=== PATIENT | male | born 1945 | race Caucasian/White ===

== ENCOUNTER 2019-10-08 16:43 | Inpatient (IN) | payer MEDICARE, BC ==
[2019-10-08 22:37] VITALS: BP 135/77
[2019-10-09] MEDS: INSULIN LISPRO SLIDING SCALE 100 UNITS/ML UNIT SUBQ SCH ×4 (06:33→21:11)
[2019-10-09] MEDS ORDERED: DOCUSATE SODIUM PO SCH (09:00)
--- NOTE | 2019-10-09 12:08 | Psychiatric Evaluation ---
DATE OF SERVICE: 10/09/2019 HISTORY OF PRESENT ILLNESS: A 74-year-old male coming in from [facility] ER direct admission, depression, thoughts of suicide via overdose. The patient alludes to depression and anxiety. He states he wants to leave, but he is on a 5150 hold. AO to name, place, not situation, he knows the year and the month. The patient attests to some anxiety. He states his had a stroke and is in the hospital, restless on exam, feeling really upset about being in the hospital, expressing his anger toward being in the hospital, wants to leave and not the best historian, minimizing his symptoms. PAST PSYCHIATRIC HISTORY: Denies any suicide attempts, denies any mental illness. FAMILY HISTORY: Noncontributory. SOCIAL HISTORY: Stating he was born in [place]. He states he is , states his is in the hospital, states he has 3 children. Family involved. The patient knows his address, states he lives at home with . MEDICATIONS: Noted. MEDICAL HISTORY: Noted including hypertension. MENTAL STATUS EXAMINATION: Stated age. Fair eye contact. Speech within normal limits. Mood "not good." Affect angry. Thought processes are linear. The patient presented due to SI, no HI, no overt psychotic symptoms. Insight seems diminished. PROVISIONAL DIAGNOSES: Major depression, recurrent, unspecified; anxiety, unspecified. MEDICAL: Please see full H and P. ESTIMATED LENGTH OF STAY: 7-10 days. ASSESSMENT: The patient requiring hospitalization on hold, suicidal. TREATMENT PLAN: Includes group as well as milieu therapy. CONDITIONS FOR DISCHARGE: Improved mood, improved affect, better control of his mood symptoms, depression, cessation of any SI. [facility]# [id number]
[2019-10-09] MEDS ORDERED: TEMAZEPAM 15 MG PO SCH (21:00)
[2019-10-10] MEDS: INSULIN LISPRO SLIDING SCALE 100 UNITS/ML UNIT SUBQ SCH ×4 (07:02→21:08)
--- NOTE | 2019-10-10 16:09 | Progress Notes ---
DATE: 10/10/2019 SUBJECTIVE: The patient seen, chart reviewed, discussed with staff. The patient is currently in the hospital, apparently was suicidal, placed on a hold for concerns for safety. He is not the best historian, but per nursing staff who was in touch with family, his living situation may not be the most stable that could have been the reason he decompensated. The patient seems to be down, depressed, still somewhat disoriented as to why he is in the hospital. Fair sleep and appetite, still remains somewhat unstable, depressed, down and ongoing melancholy. Unclear if he has any cognitive impairments given how withdrawn he is. Poor historian, some disorientation. Time was spent in attempting to speak with the patient, discussion with nursing staff, increase some collateral information, review of his chart, medications, legal status. We will continue to monitor. The patient still remains down, depressed, ongoing safety concerns. JOB# [id number]
--- NOTE | 2019-10-11 01:51 | History & Physical ---
ADMIT DATE: 10/10/2019 REASON FOR ADMISSION: Psychiatric disorder. HISTORY OF PRESENT ILLNESS: This is a 74-year-old male with diabetes, hypertension, BPH, neuropathy, mental disorder, admitted for psychiatric illnesses by Dr. Arora. Dr. Arora requested H and P on this patient. The patient stated that he is doing fine. Denies any medical concerns. PAST MEDICAL HISTORY: As described. FAMILY HISTORY: Denies any family history. SOCIAL HISTORY: Lives at home. No reported alcohol, tobacco or drug use. CURRENT MEDICATIONS: Per medication reconciliation list. ALLERGIES: CODEINE. REVIEW OF SYSTEMS: No fever, no chills, no cough or congestion, no chest pain, no dizziness, palpitations, diaphoresis ____. PHYSICAL EXAMINATION: VITAL SIGNS: Temperature 97.8, pulse 71, respirations 20, blood pressure 125/57, 97% saturation on room air. HEENT: Unremarkable. HEART: S1, S2 normal. LUNGS: Clear to auscultation. ABDOMEN: Soft, nontender. NEUROLOGIC: The patient awake. Moves all extremities. ____. ASSESSMENT: 1. Diabetes. 2. Hypertension. 3. Hyperlipidemia. 4. Benign prostatic hyperplasia. 5. Mental disorder. PLAN: The patient will continue current treatment plan. Medication list reviewed. ____. Psychiatrically medically stable. Thank you, Dr. Arora, for allowing me to participate in the care of this patient. JOB# [id number]
[2019-10-11] MEDS: INSULIN LISPRO SLIDING SCALE 100 UNITS/ML UNIT SUBQ SCH ×4 (07:18→21:22)
--- NOTE | 2019-10-12 03:12 | Progress Notes ---
DATE: 10/11/2019 SUBJECTIVE: The patient fairly well oriented. Slept about 6-7 hours, mostly withdrawn, keeps to self, really depressed, down, ongoing concerns really about safety. He was brought in because he was suicidal. The patient is currently in the hospital voluntarily. Unclear where he is going to go when he leaves here. Nursing staff has been in touch with director social welfare. The patient is calm right now. Still depressed, apathetic appearing, somewhat vegetative, mostly just keeps to self in his room, minimally interactive. Currently on dosing of mirtazapine, Cymbalta. Attempting to speak with the patient is pretty lethargic, down, apparently tried to commit suicide by overdosing with medications, has attempted to cut himself in the past. We will monitor closely, adjust medications. JOB# [id number]
[2019-10-12] MEDS: INSULIN LISPRO SLIDING SCALE 100 UNITS/ML UNIT SUBQ SCH ×4 (06:31→21:37)
--- NOTE | 2019-10-12 23:26 | Progress Notes ---
DATE: 10/12/2019 SUBJECTIVE: The patient was interviewed. Case was discussed with staff. Chart and records were reviewed. Per the staff, the patient has been isolated, guarded and withdrawn, admitted due to depression with suicidal thoughts and wanting to overdose on medication. The patient is very guarded during the interview. He reports that he wants to go home, but he is not willing to discuss his depression or suicidal thoughts. The patient overall appears to be depressed, isolating to his room and not discussing or communicating or interacting with other people. MENTAL STATUS EXAMINATION: The patient is lying in his hospital bed. He appears to be depressed with constricted affect. Speech is soft. Thought process is concrete. Unable to assess for suicidal or homicidal thoughts due to his poor cooperation and guarded nature. Denies any hallucinations or paranoia. Alert and oriented to person and place. Insight, judgment and impulse control appear to be poor. ASSESSMENT AND PLAN: We will continue the patient's acute hospitalization. We will continue medications as prescribed. We will encourage the patient to verbalize his needs and participate in group and milieu therapy. JOB# [id number]
[2019-10-13] MEDS: INSULIN LISPRO SLIDING SCALE 100 UNITS/ML UNIT SUBQ SCH ×4 (06:47→20:55)
--- NOTE | 2019-10-13 12:39 | Progress Notes ---
DATE: 10/13/2019 SUBJECTIVE: The patient in the hospital, irritable, upset, mostly withdrawn, keeps to self, seems to be better oriented, more engaged, knows where he is, why he is here, knows the year, but mostly guarded, isolative, withdrawn, coming in because he was suicidal, but stating he has never been suicidal, not really the best historian, just very guarded, mostly focused on leaving, able to verbalize his needs. Time was spent speaking with the patient. Fair sleep and appetite as well. Staff noting he has been pretty responsive, engaged, amenable to treatment. History of hypertension, anxiety, diabetes as well, brought in by daughter. Per social media senior associate, the patient will be going home. Daughter able to care for him. PLAN: We will continue inpatient monitoring. Continue dosing of Cymbalta. JOB# [id number]
[2019-10-14] MEDS: INSULIN LISPRO SLIDING SCALE 100 UNITS/ML UNIT SUBQ SCH (06:42)
--- NOTE | 2019-10-14 13:41 | Progress Notes ---
DATE: 10/14/2019 SUBJECTIVE: The patient in the hospital, mostly depressed, withdrawn, fair orientation, irritable, upset, still depressed down, but certainly improvement noted. No overt SI, more expressive, interactive with me. The patient will eventually return home once he is stabilized. Currently on dosing of Cymbalta, seems to be tolerating well. Also dosing of mirtazapine. Fair sleep and appetite. Staff noting some mild improvement. We will err on the side of caution, continue inpatient monitoring. JOB# [id number]
[2019-10-15] MEDS: INSULIN LISPRO SLIDING SCALE 100 UNITS/ML UNIT SUBQ SCH (06:49)
--- NOTE | 2019-10-15 17:25 | Progress Notes ---
DATE: 10/15/2019 SUBJECTIVE: The patient slept for 7 hours, not dionte for safety, feels uncomfortable to go home, still depressed, withdrawn, ongoing melancholy. Currently on dosing of Cymbalta, mirtazapine, still symptomatic, down, depressed, withdrawn, staff noting ongoing depression, mostly keeps to self in room. Time was spent speaking with the patient. He is amenable to going home. Daughter is amenable to taking him home. Labs were noted. Vitals were reviewed. PLAN: We will continue to monitor, listen empathetically. JOB# [id number]
[2019-10-16] MEDS: INSULIN LISPRO SLIDING SCALE 100 UNITS/ML UNIT SUBQ SCH (06:43)
--- NOTE | 2019-10-16 19:58 | Progress Notes ---
DATE: 10/16/2019 SUBJECTIVE: A 74-year-old male, currently in the hospital, mostly depressed, withdrawn, does not want to talk too much stating "I am okay, guarded, irritable." Staff noting mostly withdrawn, keeps to self, ongoing melancholy concerns today. Otherwise, he has not been particularly agitated or combative. Mostly keeps to self. Family involved. Fair sleep and appetite. Time was spent attempting to speak with the patient, also spoke with staff and recent vitals were reviewed. MEDICATIONS: Reviewed. PLAN: We will continue inpatient monitoring. Mild improvement noted. JOB# [id number]
[2019-10-17] MEDS: INSULIN LISPRO SLIDING SCALE 100 UNITS/ML UNIT SUBQ SCH (06:49)
--- NOTE | 2019-10-17 12:09 | Progress Notes ---
DATE: 10/17/2019 SUBJECTIVE: The patient is currently in the hospital, noted to be generally calmer, in better spirits, hoping to go home soon, any thoughts of self-harm are lessening. He is feeling more optimistic, more hopeful. He is also much more visible on the unit and interacting more with others. Also, calling his family more often. Fair sleep and appetite. The patient alluding to good family support at home. Staff noting improvement. Time was spent speaking with the patient with nursing staff, who notes that the patient seems to be showing signs of improvement. Nursing notes were reviewed. Vitals were reviewed. Medications were reviewed. No side effects, good tolerability. PLAN: We will err on the side of caution and monitor for further 24 hours. JOB# [id number]
[2019-10-18] MEDS: INSULIN LISPRO SLIDING SCALE 100 UNITS/ML UNIT SUBQ SCH (06:36)
--- NOTE | 2019-10-18 18:58 | Progress Notes ---
DATE: 10/18/[address] Arora SUBJECTIVE: Overnight nursing staff reported the patient has been calm. Denies any suicidal ideation. Pending disposition today. Today on [id number] evaluation, the patient denies any suicidal or homicidal thoughts. The patient reported his mood is improving. He is happy overall. Reported that the hospitalization has been helpful. ASSESSMENT AND PLAN: Robust improvement noted, stabilizing with good improvement consistent with primary psychiatrist's note and also consistent with the notes in the telephonic case manager and nursing staff. JOB# [id number]
== END 2019-10-18 13:00 | disposition home or self-care (01) | DRG 885 ==
LOC: GERO 20:38
PROVIDERS: ADMIT Psychiatry & Neurology Psychiatry; ATTEND Psychiatry & Neurology Psychiatry
DX: F33.9 Major depressive disorder, recurrent, unspecified (principal); F41.9 Anxiety disorder, unspecified; N40.0 Benign prostatic hyperplasia without lower urinary tract symptoms; I10 Essential (primary) hypertension; E78.5 Hyperlipidemia, unspecified; E11.9 Type 2 diabetes mellitus without complications; Z88.6 Allergy status to analgesic agent
CPT/HCPCS: 82948-90; 83036-90; Z7610